=== PATIENT | male | born 1950 | race Caucasian/White ===

== ENCOUNTER 2020-03-07 07:15 | Emergency (ER) | payer OTHER, SELFPAY ==
[2020-03-07] MEDS ORDERED: Ketorolac Tromethamine 30 MG/ML VIAL ONE (07:40)
--- NOTE | 2020-03-07 09:24 | CT ---
CT ABDOMEN AND PELVIS WITHOUT CONTRAST: HISTORY: Right-sided abdominal pain and flank pain. FINDINGS: Absence of oral and IV contrast reduce the sensitivity of the exam, particularly for evaluation of so lid organs involved. The lung bases are clear. No free air or free fluid is seen in the abdomen or pelvis. A calcified gal lstone is present. Multiple calcified granulomas are seen in the spleen. There are bilateral renal ca lculi, measuring up to 3 mm. There is a right-sided hydroureteronephrosis secondary to a 3 mm calculu s in the right ureter at the pelvic inlet. No left-sided hydroureteronephrosis is seen. No calculi ar e seen in the urinary bladder or the left ureter. There are vascular calcifications without evidence of aneurysmal dilatation of the abdominal aorta. T here is colonic diverticulosis without diverticulitis. There are degenerative changes with dextroscol iosis of the lumbar spine. A normal appearing appendix is present. IMPRESSION: 1. A 3 mm right ureteric calculus at the pelvic inlet with hydroureteronephrosis. 2. Nonobstructing bilateral renal calculi. 3. Colonic diverticulosis. 4. Cholelithiasis. POS: [facility]
== END 2020-03-07 08:10 | disposition home or self-care (01) ==
LOC: MADERS 07:15
DX: N13.2 Hydronephrosis with renal and ureteral calculous obstruction (principal)
CPT/HCPCS: 74176; 96372; J1885

== ENCOUNTER 2020-03-13 08:18 | Emergency (ER) | payer OTHER, SELFPAY ==
[2020-03-13 09:30] LABS: Bilirubin Negative (Negative); Blood, Urine Large (Negative); Glucose, Urine (Dipstick) Negative (Negative); Ketone, Urine Negative (Negative); Leukocyte Negative (Negative); Nitrite Negative (Negative); Protein, Urine (Dipstick) Negative (Neg-Trace); Urobilinogen 0.2 mg/dL (Less than 2); pH, Urine 5.5 (5.0-9.0)
[2020-03-13] MEDS ORDERED: Ketorolac Tromethamine 30 MG/ML VIAL ONE (09:31)
[2020-03-13] MEDS ORDERED: Tamsulosin HCl 0.4 MG CAP ONE (09:31)
[2020-03-13 09:32] LABS: #Basophils 0.1 thou/uL (0.0-0.2); #Eosinphils 0.2 thou/uL (0.0-0.7); #Lymphocytes 1.4 thou/uL (1.20-3.40); #Monocytes 0.4 thou/uL (0.11-0.59); #Neutrophils 4.1 thou/uL (1.40-6.50); %Basophils 1.2 % (0.0-1.0); %Eosinophils 2.8 % (0.0-10.0); %Lymphocytes 22.1 % (21.0-51.0); %Neutrophils 67.9 % (42.0-75.0); Hemoglobin 14.9 g/dL (14.0-18.0); Mean Corpuscular HGB CONC 32.2 g/dL (32.0-36.0); Mean Corpuscular Hemoglobin 28.5 pg (27.0-31.0); Mean Corpuscular Volume 88.4 fL (78.0-98.0); Platelet Count 179 thou/uL (130-400); RBC Distribution Width 12.4 % (11.5-14.5); Red Blood Cell (RBC) Count 5.24 mill/uL (4.70-6.10); White Blood Cell (WBC) Count 6.1 thou/uL (4.8-10.8)
--- NOTE | 2020-03-13 09:35 | CT ---
CT OF THE ABDOMEN AND PELVIS WITHOUT IV CONTRAST INDICATION: 69-year-old male with history of renal stones COMPARISON: March 07, 2020 FINDINGS: The lack of IV contrast limits evaluation of the solid organs of the abdomen and pelvis. ABDOMEN: Lung bases: Clear Liver: No focal lesion. Gallbladder: Stable cholelithiasis Pancreas: Normal. Adrenal glands: Normal. Spleen: Calcified granuloma Kidneys and ureters: There is stable nonobstructing renal calculi bilaterally. 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 There is worsening moderate right-sided hydronephrosis and hydroureter. Previously seen 3 mm calculus at the level of the pelvic inlet has now migrated to just beyond the right UVJ on image 7 3 of series 2. No left-sided hydronephrosis is evident. Vasculature: There are moderate vascular calcifications seen involving the visualized vasculature. Lymph nodes:No lymphadenopathy. Free fluid in abdomen:No free fluid is evident. PELVIS: Small and large bowel: Normal Appendix:Normal Bladder: Partially decompressed Rectal and perirectal soft tissues:Normal. Reproductive structures: Normal. Free fluid in pelvis: No free fluid is evident. Lymphadenopathy pelvis: No lymphadenopathy is evident. Osseous structures: There is stable chronic wedge deformity involving L1 and L2. There is dextroscoli osis of the lumbar spine. No acute fracture or subluxation demonstrated. Small bone island is seen within the left ischial tuberosity. There is scattered degenerative and osteoarthritic changes. Soft tissues:Normal. IMPRESSION: 1. Distal migration of the previously seen 3 mm distal right ureteral calculus. The stone is now seen just beyond the level the right UVJ. There is slight worsening moderate right hydronephrosis and hydroureter. 2. Bilateral nephrolithiasis is stable. 3. Stable cholelithiasis.
[2020-03-13 09:36] LABS: Bacteria/HPF Rare-Few HPF (None Seen); Clarity Hazy (Clear); RBC/HPF Greater than 50 HPF (0-3); Specific Gravity, Urine 1.023 (1.002-1.036); Squamous Epithelial 0-3 HPF (0-3); WBC/HPF 0-3 HPF (0-3)
[2020-03-13 09:47] LABS: ALT (SGPT) 17 U/L (8-55); AST (SGOT) 25 U/L (5-34); Albumin 4.5 g/dL (3.4-4.8); Alkaline Phosphatase 60 U/L (40-110); Anion Gap 15 mmol/L (10-20); BUN (Urea Nitrogen) 21 mg/dL (8.4-25.7); Bilirubin, Total 0.6 mg/dL (0.2-1.2); Calc. Creatinine Clearance 0 mL/min (70-130); Carbon Dioxide 23 mmol/L (23-31); Chloride 107 mmol/L (98-107); Globulin 3.7 g/dL (2.4-3.5); Glucose 97 mg/dL (80-115); Potassium 4.4 mmol/L (3.5-5.1); Protein, Total 8.2 g/dL (5.8-8.1); Sodium 141 mmol/L (136-145)
== END 2020-03-13 10:12 | disposition home or self-care (01) ==
LOC: MADERS 08:18
DX: N13.2 Hydronephrosis with renal and ureteral calculous obstruction (principal); F43.10 Post-traumatic stress disorder, unspecified; Z87.442 Personal history of urinary calculi; Z79.899 Other long term (current) drug therapy
CPT/HCPCS: 74176; 80053; 81003; 81015; 84484; 85025; 96374; J1885